=== PATIENT | male | born 1955 | race Caucasian/White ===

== ENCOUNTER → 2017-02-04 | Day surgery (SDC) | payer OTHER ==
[~2017-02-04] MED LIST: IV RINGERS SOLUTION,LACTATED 1,000 ML IV ONE; LIDOCAINE 2% 20 ML VIAL. ONE; PROPOFOL 50 ML IV ONE
--- NOTE | 2017-02-07 13:24 | PATHOLOGY ---
PATHOLOGY REPORT * * * * * * * * FINAL DIAGNOSIS: Gastric biopsy, antrum: - Chronic gastritis, mild. COMMENT: Sections of the gastric biopsy reveal segments of gastric antral and gastric body mucosa showing congestion and mild chronic inflammation. An immunoperoxidase stain for Helicobacter is obtained. No Helicobacter organisms are identified. There is no evidence of malignancy. (JPM:mml; 02/07/2017) REPORT ELECTRONICALLY SIGNED BY: Jack Pack M.D. DATE/TIME: 02/07/2017 13:22 * * * * * * * * GROSS PATHOLOGY: Received in formalin labeled "Erasto Stock, antrum gastritis," are 2 segments of friend soft tissue measuring 0.8 x 0.3 x 0.3 cm in aggregate dimensions and ranging from 0.4 to 0.4 cm in maximum dimension. The specimen is submitted entirely in cassette A1. (TSD; 02/04/2017) INITIAL CPT CODE(S): A; 88606, 02429 Professional services performed [place] [address] Technical services performed by [facility] at [address] [place] [address] [address] [address]. SPECIMEN(S) RECEIVED: A.Antrum gastritis CLINICAL HISTORY: Epigastric pain, screening colon PATIENT: EBEN STOCK /AGE: 812/10/1955 (Age: 61) PATIENT #: [id number] ALT CASE #: SPECIMEN COLLECTION DATE: 02/04/2017 SPECIMEN RECEIVED DATE: 02/04/2017 [facility] - [address] [place] [address] - PHONE: [phone] * * * END OF REPORT * * *
== END | disposition home or self-care (01) ==
LOC: SURG 10:24
PROVIDERS: ATTEND Internal Medicine Gastroenterology
DX: Z12.11 Encounter for screening for malignant neoplasm of colon (principal); K29.01 Acute gastritis with bleeding; K21.0 Gastro-esophageal reflux disease with esophagitis; I10 Essential (primary) hypertension
CPT/HCPCS: 43239; 45378; 88305; 88342; J2704; J7120; J2001